=== PATIENT | female | born 1955 | race Caucasian/White ===

== ENCOUNTER → 2023-06-19 13:16 | Outpatient (REF) | payer MEDICARE, SELFPAY | LOC: WDC 13:16 | PROVIDERS: ATTENDING PHYSICIAN Family Medicine | DX: Z12.31 Encounter for screening mammogram for malignant neoplasm of breast (principal); M81.0 Age-related osteoporosis without current pathological fracture | CPT/HCPCS: 77063; 77067; 77080 ==

== ENCOUNTER 2023-12-01 14:02 | Emergency (ER) | payer MEDICARE, SELFPAY ==
[2023-12-01 14:07] VITALS: BP 139/65
[2023-12-01 14:31] LABS: % Eosinophils 3.2 % (0-6); % Immature Granulocytes 0.2 % (0-0.5); % Lymphocytes 42.4 % (20.5-51.1); % Monocytes 7.1 % (1.7-9.3); % Neutrophils 46.1 % (42.2-75.2); Absolute Basophils 0.1 10^3/uL (0-0.2); Absolute Eosinophils 0.2 10^3/uL (0-0.7); Absolute Lymphocytes 2.6 10^3/uL (1.2-3.4); Absolute Monocytes 0.4 10^3/uL (0.1-0.6); Absolute Neutrophils 2.9 10^3/uL (1.4-6.5); Hematocrit 36.6 % (37.0-47.0); Hemoglobin 13.1 g/dL (12.0-16.0); Mean Corp Hgb Conc. 35.8 g/dL (33.0-37.0); Mean Corpuscular Hgb 32.2 pg (27.0-31.0); Mean Corpuscular Volume 89.9 fL (81.0-99.0); Mean Platelet Volume 10.1 fL (7.4-10.4); Nucleated Red Blood Cells % 0 %; Platelet Count 233 10^3/uL (130-400); Red Blood Cell Count 4.07 10^6/uL (4.20-5.40); Red Cell Dist. Width 12.6 % (11.5-14.5); White Blood Cell Count 6.2 10^3/uL (4.8-10.8)
[2023-12-01 14:46] LABS: ALT (SGPT) 21 U/L (0-35); AST (SGOT) 28 U/L (14-36); Albumin 4.5 g/dl (3.5-5.0); Alkaline Phosphatase 30 U/L (38-126); Blood Urea Nitrogen 15 mg/dl (7-17); Calcium 9.5 mg/dl (8.4-10.2); Carbon Dioxide 28 mmol/L (22-30); Chloride 106 mmol/L (98-107); Glucose 101 mg/dl (70-99); Potassium 3.5 mmol/L (3.5-5.1); Sodium 146 mmol/L (135-145); Total Bilirubin 0.3 mg/dl (0.2-1.3); Total Protein 7.1 g/dl (6.3-8.2); eGFR > 60.00
[2023-12-01 14:57] LABS: Troponin I < 0.012 ng/ml
--- NOTE | 2023-12-01 15:45 | ED.GENMED ---
History of Present Illness
<Michael Aaron MD, Resident - Last Filed: 12/01/23 15:54>
General
Chief Complaint: Chest Pain
Source: patient
Exam Limitations: none
Time Seen by Provider: 12/01/23 15:08
History of Present Illness
History of Present Illness:
Patient is a 68-year-old female with past medical history of GERD who is experiencing periodic dull chest pain from . Each episode lasts around 30 seconds and goes away by itself; mentions it gets worse when lying on left side. Pain does not
radiate. She thinks it is similar to the pain she sometimes has d/t GERD. Does not have any abdominal symptoms including nausea, vomiting, or diarrhea. Does not have any shortness of breath. Does not notice leg swelling. Denies fever. Denies
recent travel.
Review of Systems
<Michael Aaron MD, Resident - Last Filed: 12/01/23 15:54>
Review of Systems
Allergies reviewed?: Yes
All Other Systems: ROS reviewed and negative except as documented in HPI and ROS
Phy Exam
<Michael Aaron MD, Resident - Last Filed: 12/01/23 15:54>
General Physical Exam
General Presentation: well appearing and no apparent distress
Cardiovascular Exam
Cardiovascular Exam: regular rate/rhythm, no edema, no gallop, no JVD and no murmur
Pulmonary Exam
Pulmonary Exam: lungs clear, no respiratory distress, no rales, no crackles and no rhonchi
Gastrointestinal Exam
Gastrointestinal Exam: normal bowel sounds, non tender, soft and non distended
Neurological Exam
Neurological Exam: alert and oriented x3
Musculoskeletal Exam
Musculoskeletal Exam: no edema
Scores
<Michael Aaron MD, Resident - Last Filed: 12/01/23 15:54>
Heart Score for Chest Pain Patients
STEMI patient?: No
History: Slightly or Non-Suspicious
ECG: Normal
Age: >/= 65 years
Risk Factors: No Risk Factors
Troponin: </= Normal Limit
Heart Score for Chest Pain Patients: 2
Heart Score Risk: 2.5% MACE over next 6 weeks
<Ozzy Sotelo MD - Last Filed: 12/01/23 17:19>
Heart Score for Chest Pain Patients
Heart Score for Chest Pain Patients: 2
Heart Score Risk: 2.5% MACE over next 6 weeks
Course
<Michael Aaron MD, Resident - Last Filed: 12/01/23 15:54>
Orders/Labs/Results
Orders:
Orders
12/01/23 14:03
EKG [Electrocardiogram (*1)] Urgent
Reason for Study: Chest Pain
EKG- Treatment ONCE
12/01/23 14:17
Complete Blood Count/With Diff Urgent
Comprehensive Metabolic Panel Urgent
Troponin I Urgent
12/01/23 15:37
CR Chest - 2 Views Urgent
Comment:
Reason For Exam: left sided CP
Abnormal Lab Results
12/01/23
14:17
RBC 4.07 L 10^6/uL
(4.20-5.40)
Hct 36.6 L %
(37.0-47.0)
MCH 32.2 H pg
(27.0-31.0)
Sodium 146 H mmol/L
(135-145)
Glucose 101 H mg/dl
(70-99)
Alkaline Phosphatase 30 L U/L
(38-126)
12/01/23 14:17
12/01/23 14:17
Vital Signs
Initial and Last Documented VS:
Initial Vital Signs
Temp Pulse Resp BP Pulse Ox
98.1 F 67 16 139/65 94
12/01/23 14:07 12/01/23 14:07 12/01/23 14:07 12/01/23 14:07 12/01/23 14:07
Last Documented Vital Signs
Temp Pulse Resp BP Pulse Ox
98.1 F 67 16 139/65 94
12/01/23 14:07 12/01/23 14:07 12/01/23 14:07 12/01/23 14:07 12/01/23 14:07
<Ozzy Sotelo MD - Last Filed: 12/01/23 17:19>
Orders/Labs/Results
Orders:
Orders
12/01/23 14:03
EKG [Electrocardiogram (*1)] Urgent
Reason for Study: Chest Pain
EKG- Treatment ONCE
12/01/23 14:17
Complete Blood Count/With Diff Urgent
Comprehensive Metabolic Panel Urgent
Troponin I Urgent
12/01/23 15:37
CR Chest - 2 Views Urgent
Comment:
Reason For Exam: left sided CP
Abnormal Lab Results
12/01/23
14:17
RBC 4.07 L 10^6/uL
(4.20-5.40)
Hct 36.6 L %
(37.0-47.0)
MCH 32.2 H pg
(27.0-31.0)
Sodium 146 H mmol/L
(135-145)
Glucose 101 H mg/dl
(70-99)
Alkaline Phosphatase 30 L U/L
(38-126)
12/01/23 14:17
12/01/23 14:17
Vital Signs
Initial and Last Documented VS:
Initial Vital Signs
Temp Pulse Resp BP Pulse Ox
98.1 F 67 16 139/65 94
12/01/23 14:07 12/01/23 14:07 12/01/23 14:07 12/01/23 14:07 12/01/23 14:07
Last Documented Vital Signs
Temp Pulse Resp BP Pulse Ox
98.1 F 67 16 139/65 94
12/01/23 14:07 12/01/23 14:07 12/01/23 14:07 12/01/23 14:07 12/01/23 14:07
<Michael Aaron MD, Resident - Last Filed: 12/01/23 15:54>
*Critical Care Note
Total Time (30-74mins, 75-104mins- exclusive of procedures): 30
ED Attending Note
<Michael Aaron MD, Resident - Last Filed: 12/01/23 15:54>
-
Portions of this chart may have been created with voice recognition software.� Occasional wrong word or��sound alike� substitutions may have occurred due to the inherent limitations of voice recognition software.
<Ozzy Sotelo MD - Last Filed: 12/01/23 17:19>
ED Attending Note
Patient seen and examined by attending physician: Yes
ED Attending Note:
Patient with history of GERD, presents to ED secondary to intermittent left-sided chest pain over the past 2 days. Chest pain described as dull, nonradiating, worse with certain position, mildly relieved when lifting up her left breast. Patient
states that she has been cleaning her house recently, and lifting heavy objects. Denies direct trauma. Denies fever or chills. Denies shortness of breath. Denies back pain. Denies leg pain or swelling. Denies recent travel or surgery. Denies
previous history of similar symptoms. Denies family history of heart disease. Denies smoking.
Physical Exam
General: no apparent distress, not acutely ill
Neck: supple. no meningeal signs.
Heart: s1/s2 regular rate and rhythm, no murmur. equal radial pulses.
Lungs: no acute respiratory distress. clear bilaterally. mild left anterior chest wall tenderness to palpation, without ecchymosis/swelling.
Abdomen: normal bowel sounds. not tender.
Neuro: alert and oriented. no focal neurological deficits
Skin: no rash
Psychiatric: well kept. interactive and cooperative
Extremities: no edema. no calf tenderness.
History and exam inconsistent with ACS, but likely musculoskeletal in etiology, with recent change in activities. As such, patient will be discharged home in stable condition, with recommendation to follow-up with PCP for reevaluation next week,
will consider return to ED with worsening symptoms. Patient and spouse expressed understanding at time of discharge.
Discharge Plan
Departure
Patient Disposition: Home (Routine Discharge)
Date of Disposition: 12/01/23
Time of Disposition: 17:09
Patient with high blood pressure during this ER visit?: Yes
Discharge Problem:
Chest wall pain
Instructions: Chest Pain PCP Follow Up
Referrals:
Ivy Tee PA [Family Provider] -
Activity Restrictions/Additional Instructions:
As discussed, please follow-up with your primary care physician for reevaluation next week.
Interventions
Interventions:
*Risk Screen - Suicide Last Done: 12/01/23 14:07
*General Assessment Last Done: 12/01/23 14:07
*Neglect/Abuse Screening Last Done: 12/01/23 14:07
*ED COVID-19 Vaccine History Last Done: 12/01/23 14:07
Discharge Date and Time
Print Language: PERUVIAN
== END 2023-12-01 17:32 | disposition home or self-care (01) ==
LOC: EMR 14:02
PROVIDERS: Emergency Medicine; EMERGENCY PHYSICIAN Emergency Medicine; FAMILY PHYSICIAN Family Medicine
DX: R07.89 Other chest pain (principal); K21.9 Gastro-esophageal reflux disease without esophagitis
CPT/HCPCS: 99285; 71046; 80053; 84484; 85025; 93005

== ENCOUNTER → 2024-06-26 11:07 | Outpatient (REF) | payer MEDICARE, SELFPAY | LOC: WDC 11:07 | PROVIDERS: ATTENDING PHYSICIAN Family Medicine | DX: Z12.31 Encounter for screening mammogram for malignant neoplasm of breast (principal) | CPT/HCPCS: 77063; 77067 ==

== ENCOUNTER → 2024-07-05 07:42 | Outpatient (REF) | payer MEDICARE, SELFPAY | LOC: PAVMRI 07:42 | PROVIDERS: ATTENDING PHYSICIAN Physical Medicine & Rehabilitation; FAMILY PHYSICIAN Family Medicine | DX: M54.16 Radiculopathy, lumbar region (principal) | CPT/HCPCS: 72148 ==